=== PATIENT | female | born 1995 | race Caucasian/White ===

== ENCOUNTER 2016-08-31 22:24 | Emergency (ER) | payer MEDICAID ==
--- NOTE | 2016-09-12 21:14 | ER ---
ADMIT: 08/31/2016 RM/LOC: ER [facility] MR#: [id number] [id number] [facility] [address] [place], [place] [address] [facility] ISABEL [address] [facility] [address] [place] [id number] Emergency Room Report SEX: F AGE: 21 : 1995 DATE: 08/31/2016 ADDENDUM: CHIEF COMPLAINT: Nausea and vomiting. HISTORY OF PRESENT ILLNESS: This is a 21-year-old female, who is about 19 weeks . She has had quite a bit of nausea throughout her . She is prescribed medications by Dr. Jackson, but she said today, she was just not able to keep anything down. She is feeling very weak. COURSE IN THE EMERGENCY ROOM: I gave her 1 L of fluids. I am sending her home with [place]iana. At this time, I am awaiting a urine. When that is resolved, then she will go home. CLINICAL IMPRESSION: Discomforts of with nausea and vomiting. CHANEL Wsahburn / Wilfrido Merritt MD / rajil JOB #: [id number] CC: Wilfrido Merritt MD, Attending Physician Jude Jackson MD, Family Physician
[2016-12-03] MEDS ORDERED: FEOSOL-DPS325 MG PO (15:23)
[2016-12-03] MEDS ORDERED: AMBIEN DPS5 MG PO (15:23)
[2016-12-03] MEDS ORDERED: PRENATAL VIT1 TAB PO (15:23)
[2016-12-03] MEDS ORDERED: PRILOSEC DPS20 MG PO (15:23)
[2016-12-03] MEDS ORDERED: [UNRECOGNIZED DRUG - OTHER] PO (15:24)
[2017-01-20] MEDS ORDERED: PRILOSEC DPS20 MG PO (10:01)
[2017-01-20] MEDS ORDERED: PRENATAL VITAM1 EAC6 PO (10:01)
[2017-01-20] MEDS ORDERED: IRON325 M1 PO (10:02)
[2017-01-20] MEDS ORDERED: NIPPLECREAM TP (10:02)
[2017-01-20] MEDS ORDERED: MOTRIN-DPS800 MG PO (10:02)
[2017-01-20] MEDS ORDERED: COLACE-DPS100 MG PO (10:02)
== END 2016-09-01 01:12 | disposition home or self-care (01) ==
LOC: ER 22:24
DX: O23.42 Unspecified infection of urinary tract in pregnancy, second trimester (principal); Z90.49 Acquired absence of other specified parts of digestive tract; Z3A.19 19 weeks gestation of pregnancy

== ENCOUNTER → 2016-09-06 | Outpatient (CLI) | payer MEDICAID ==
[~2016-09-06] MED LIST: AMBIEN DPS5 MG PO; COLACE-DPS100 MG PO; FEOSOL-DPS325 MG PO; IRON325 M1 PO; MOTRIN-DPS800 MG PO; NIPPLECREAM TP; PRENATAL VIT1 TAB PO; PRENATAL VITAM1 EAC6 PO; PRILOSEC DPS20 MG PO; [UNRECOGNIZED DRUG - OTHER] PO
== END | disposition home or self-care (01) ==
LOC: RAD.S 12:29
DX: Z36 Encounter for antenatal screening of mother (principal); Z3A.19 19 weeks gestation of pregnancy

== ENCOUNTER → 2016-11-22 | Outpatient (CLI) | payer MEDICAID | END | disposition home or self-care (01) | LOC: RAD.S 15:36 | DX: Z36 Encounter for antenatal screening of mother (principal); Z3A.30 30 weeks gestation of pregnancy ==

== ENCOUNTER 2016-11-30 02:52 | Observation (INO) | payer MEDICAID ==
[~2016-11-30] VITALS: Ht 157.5 cm; Wt 77.1 kg
[2016-12-03] MEDS ORDERED: PRILOSEC DPS20 MG PO (15:23)
[2016-12-03] MEDS ORDERED: AMBIEN DPS5 MG PO (15:23)
[2016-12-03] MEDS ORDERED: FEOSOL-DPS325 MG PO (15:23)
[2016-12-03] MEDS ORDERED: PRENATAL VIT1 TAB PO (15:23)
[2016-12-03] MEDS ORDERED: [UNRECOGNIZED DRUG - OTHER] PO (15:24)
--- NOTE | 2016-12-07 08:43 | HP ---
ADMIT: 11/30/2016 RM/LOC: 218 [facility] MR#: [id number] 2620 [facility] [address] [place], [place] [address] [facility] ISABEL [address] [facility] [address] [place] [address] History and Physical SEX: F AGE: 21 : 1995 DATE OF SERVICE: CHIEF COMPLAINT: Uterine contractions. HISTORY OF PRESENT ILLNESS: This is a 21-year-old, G3, P1-0-1-1 with intrauterine at 32 weeks by LMP consistent with first-trimester ultrasound, who was admitted for observation with contractions. The patient states that she woke up with lower abdominal, pelvic cramping and back pain around 2 a.m. Her last labor lasted approximately 15 minutes, so she is unsure what contractions really feel like. She denied any vaginal bleeding or leaking of fluid. She did note positive movement. Her has been complicated by first trimester nausea and vomiting resulting in dehydration but has otherwise been doing well since her 2nd trimester. Upon arrival to the Labor and Delivery floor, she was put on the monitor and noted to be precious every 2-3 minutes. She was given 500 mL normal saline bolus and contractions spaced out to about every 4-6 minutes. Contractions then picked back up, so she was given another 500 mL normal saline bolus and 650 mg of p.o. Tylenol. There was concern for labor, so a fibronectin was collected that came back positive. GBS and gonorrhea and chlamydia screen were also collected, but those results are not back yet. A UA was taken and was negative for any infection. Cervical length check by the nurse found her cervix to be 1 cm dilated, thick and high. Cervical length done by ultrasound showed that her cervix was 2.04 cm. PAST MEDICAL HISTORY: 1. Anemia with past pregnancies. 2. Ankle fracture x2. PAST SURGICAL HISTORY: Gallbladder removal at the age of 4. MEDICATIONS: 1. vitamin once daily. 2. Diclegis 10 mg twice daily. ALLERGIES: NONE. FAMILY HISTORY: Significant for hypertension, heart disease, lupus, and stroke. Grandfather with prostate cancer. SOCIAL HISTORY: She is currently in a relationship. She has a history of smoking but is no longer using tobacco during this . REVIEW OF SYSTEMS: Review of systems is significant for uterine contractions as described in history of present illness. Again, the patient reports no vaginal bleeding or leaking of fluid. She notes good movement. PHYSICAL EXAMINATION: GENERAL: A well-developed, well-nourished, white female, alert and oriented x3 in moderate distress during contractions. VITAL SIGNS: Blood pressure 114/73, pulse 67, and saturating 98% on room air. ADMIT: 11/30/2016 RM/LOC: 218 [facility] MR#: [id number] [address] [address] [facility] [address] [place] [address] History and Physical SEX: F AGE: 21 : 1995 She is afebrile. HEENT: Head is normocephalic, atraumatic. Pupils equal, round, and reactive. Extraocular muscles are intact. HEART: Regular rate and rhythm. She does have 2/6 systolic murmur. LUNGS: Clear to auscultation. ABDOMEN: Soft, nontender, and gravid. EXTREMITIES: Show no clubbing or cyanosis, but do have trace edema. GENITOURINARY: Sterile vaginal exam by the nurse revealed the cervix to be 1 cm dilated, thick, and -3 station. heart tones 150s baseline, moderate variability. Occasional variable decelerations, and positive acceleration. Uterine contractions were noted to be every 2-3 minutes on the monitor. OBSTETRICAL LABS: Blood type AB positive. Rubella immune. Syphilis negative. Hepatitis B antigen negative, hepatitis C antibody negative. Gonorrhea and chlamydia negative. Diabetic screen was passed. Group B strep is still pending. ASSESSMENT: 1. This is a 21-year-old, 3, para 1, with intrauterine at 32 weeks by last menstrual period consistent with first trimester ultrasound, who presented to Labor and delivery with complaints of uterine contractions. 2. labor. 3. Rh positive. PLAN: Will be to admit to observation status for further monitoring. OB was consulted for labor management. She has been given one dose of IM Celestone and will plan to repeat that in 24 hours. We will have her on bedrest with bathroom privileges. We will also plan to monitor baby and recheck her cervix, may need tocolytics in the future but as of now, it seems that her contractions are slowing down a bit. Wilma Gandhi DO Resident / Jude Jackson MD / shakira JOB #: [id number] CC: Jude Jackson, Attending Physician Jude Jackson, Family Physician
--- NOTE | 2016-12-15 09:20 | CO ---
ADMIT: 11/30/2016 RM/LOC: 218 [facility] MR#: [id number] 26[address] [facility] [address] [place], [place] [address] [place] IS[facility]EL [address] [facility] [address] [place] [address] Consultation SEX: F AGE: 21 : 1995 DATE OF CONSULTATION: 11/30/2016 ATTENDING PHYSICIAN: Jude Jackson CONSULTING PHYSICIAN: Umu Avendano MD REASON FOR CONSULTATION: labor. HISTORY OF PRESENT ILLNESS: This is a 21-year-old G3, P1-0-1-1, who presented to Labor and Delivery overnight with complaints of contractions. Her estimated date of delivery is 01/25/2017 by LMP, consistent with a 14-week ultrasound. Her has been complicated by nausea and vomiting in early , which has subsequently resolved. On initial presentation to Labor and Delivery, she was noted to be precious every 2 to 4 minutes. Otherwise, NST was normal. fibronectin was collected and found to be positive. Digital cervical exam was not initially performed upon presentation. The cervical length was performed and found to be 2.1 cm. Her contractions did start to decrease after additional monitoring on Labor and Delivery and fluid bolus, and the patient was comfortable at the time of my consultation. Upon presentation, her urine was negative for infection. Gonorrhea and chlamydia have been collected as well as GBS. At 0730 hours, the patient was checked and her cervix was noted to be one thick and floating. She was rechecked at approximately 0915 hours, and she was found to be 2 to 3 cm, 30% effaced, and high. On ultrasound performed, fetus was in cephalic position. PAST MEDICAL HISTORY: History of two prior ankle fractures. She has history of anemia of . PAST SURGICAL HISTORY: She had her gallbladder removed when she was 4 years old. SOCIAL HISTORY: She did smoke prior to . Does not smoke currently in . ALLERGIES: NO KNOWN DRUG ALLERGIES. MEDICATIONS: She takes vitamin daily, iron supplementation. OB LABS: On 08/01/2016, hemoglobin was 12, platelets were 245. HIV was negative. Urine culture was negative. Blood type is AB positive. Rubella immune, syphilis negative. Hepatitis B surface antigen negative. Antibody screen negative. Gonorrhea and chlamydia were negative. Her 1-hour Glucola was 134. She had an anatomy scan performed on September 06, 2016, which showed normal growth, normal fluid, and normal anatomy. She also recently had a followup scan, which showed normal growth. PHYSICAL EXAMINATION: heart tones 135, moderate variability, positive accelerations, no decelerations. Baring, currently no contractions on monitoring. ADMIT: 11/30/2016 RM/LOC: 218 [facility] MR#: [id number] [address] [address] [facility] [address] [place] [address] Consultation SEX: F AGE: 21 : 1995 VITAL SIGNS: Blood pressure is 101/48, pulse is 93, respirations 16, temperature is 97.8. GENERAL: The patient is in no acute distress. HEART: Regular rate and rhythm. No murmurs, rubs, or gallops. LUNGS: Clear to auscultation bilaterally. ABDOMEN: Gravid. No palpable contractions. EXTREMITIES: No lower extremity edema. GENITOURINARY: Cervix is 2 to 3 cm, 30% effaced and high. LABORATORY DATA: Ultrasound performed today shows from known BILLY of 01/25/2017, at 32 weeks and 0/7 days. Estimated weight of 3 pounds 15 ounces or 1953 g, which is the 33rd percentile. Normal cardiac activity. Normal amniotic fluid at 21.9. Vertex position. No placenta previa. ASSESSMENT AND PLAN: This is a 21-year-old G3, P1-0-1-1 with an intrauterine at 32 weeks and 0 days. 1. labor. She is status post her first dose of Celestone. We will recommend continuing for a second dose 24 hours after the first, 12 mg of betamethasone. I would also recommend maintaining hospitalized bedrest times at least 48 hours from the first dose. If she is no longer symptomatic and not having cervical change at that point in time, could consider discharge home. We will also start nifedipine for tocolysis. GBS culture has been collected previously, so we will proceed with starting penicillin for GBS prophylaxis. Primary team indicated they would notify NICU of estimated weight and possible impending delivery. Umu Avendano MD/ shakira JOB #: [id number] CC: Jude Jackson, Attending Physician Jude Jackson, Family Physician
--- NOTE | 2017-01-02 12:51 | DS ---
ADMIT: 11/30/2016 RM/LOC: 218 [facility] MR#: [id number] [id number] [place], [place] [address] FR[place] ISABEL [address] [address] General Discharge Summary SEX: F AGE: 21 : 1995 ADMISSION DATE: 11/30/2016 DISCHARGE DATE: 12/02/2016 ADMITTING DIAGNOSIS: As per history and physical. FINAL DIAGNOSES: 1. Intrauterine , currently 32 weeks. 2. Premature labor. 3. Dismissed undelivered. COMPLICATIONS: None. OPERATIONS: None. CLINICAL HISTORY: The patient is a 21-year-old, white female, 3, para 1-0-0-1, who is currently 32 week's . The patient was admitted to the [facility] for monitoring because of suspected premature labor. The patient presented with abdominal cramping and contractions. For further details of her clinical history as well as past medical history and pertinent findings on physical exam, please see dictated history and physical. Please also see Dr. Avendano's dictated [employer]IA PROFESSOR consultation. LABORATORY AND X-RAY SUMMARY FROM THIS ADMISSION: Her initial urinalysis was clear with no evidence of UTI. Her cervical cultures were negative for GC and chlamydia. Her fibronectin was positive on 11/30/2016. Her group B strep screen was negative. An ultrasound was obtained on 11/30/2016. Ultrasound showed her to have an estimated weight of 3 pounds 15 ounces and was consistent with a 32-week . No significant complicating features noted. Amniotic fluid volume was normal. Cervical length was somewhat shortened at 2.1 cm. HOSPITAL COURSE: The patient was admitted with premature labor. She was placed at bed rest and hydrated with IV fluids. Dr. Avendano was consulted for management of labor. She did have a positive fibronectin. Cervical cultures were obtained. She was placed on oral Procardia for tocolysis and seemed to respond well to this with decreasing contractions and decreased uterine activity. The patient had no further active labor. She was dismissed to home on 12/02/2016 with a planned followup in our office in 2 to 3 days. She was dismissed to bed rest at home. She was also dismissed on Procardia 20 mg q.6 hours. DISCHARGE MEDICATIONS: Medications at discharge included: 1. Ambien 5 mg at bedtime for sleep. ADMIT: 11/30/2016 RM/LOC: 218 [facility] MR#: [id number] [address] [address] [place] IS[address] [address] [place] [address] General Discharge Summary SEX: F AGE: 21 : 1995 2. Ferrous sulfate 325 mg daily. 3. vitamin one daily. 4. Procardia 20 mg every 6 hours. 5. Omeprazole 20 mg daily. CONDITION AT DISCHARGE: Stable. PROGNOSIS: Somewhat guarded. We are hopeful with bed rest and oral Procardia, that we will be able to at least get her to 36 weeks' gestational age prior to delivery. FOLLOWUP: She is to follow up in our office in 2 to 3 days. Jude Jackson MD/ shakira JOB #: [id number] CC: Jude Jackson MD, Attending Physician Jude Jackson MD, Family Physician
[2017-01-20] MEDS ORDERED: PRENATAL VITAM1 EAC6 PO (10:01)
[2017-01-20] MEDS ORDERED: PRILOSEC DPS20 MG PO (10:01)
[2017-01-20] MEDS ORDERED: IRON325 M1 PO (10:02)
[2017-01-20] MEDS ORDERED: COLACE-DPS100 MG PO (10:02)
[2017-01-20] MEDS ORDERED: NIPPLECREAM TP (10:02)
[2017-01-20] MEDS ORDERED: MOTRIN-DPS800 MG PO (10:02)
== END 2016-12-02 11:00 | disposition home or self-care (01) ==
LOC: BC 02:52 → 2LDRP 02:52 → BC 01-24 08:00
PROVIDERS: ADMIT Family Medicine
DX: O60.03 Preterm labor without delivery, third trimester (principal); Z3A.32 32 weeks gestation of pregnancy; Z79.899 Other long term (current) drug therapy; Z87.891 Personal history of nicotine dependence; Z98.890 Other specified postprocedural states